=== PATIENT | male | born 1980 | race Two or more races ===

== ENCOUNTER 2022-05-10 11:33 | Emergency (ER) | payer OTHER ==
[~2022-05-10] VITALS: Ht 154.9 cm; Wt 89.8 kg
== END 2022-05-10 12:21 | disposition home or self-care (01) ==
LOC: ER 11:33
DX: M54.9 Dorsalgia, unspecified (principal); Z88.0 Allergy status to penicillin; Z88.6 Allergy status to analgesic agent